=== PATIENT | male | born 1945 | race Caucasian/White ===

== ENCOUNTER → 2018-11-20 | Outpatient (CLI) | payer OTHER, MEDICARE ==
[~2018-11-20] VITALS: Ht 175.3 cm; Wt 97.5 kg
[~2018-11-20] MED LIST: AMLODIPINE BESYL5 MG PO; ASPIRIN EC325 M1 PO; BETIMOL5 ML OPHTHALMIC; CARVEDILOL25 MG PO; FISH OIL 1,2001 EAC4 PO; IBUPROFEN 200200 M1 PO; JARDIANCE25 MG PO; LANTUSSOLASTAR SQ; LISINOPRIL-HCT1 EAC1 PO; MOBIC7.5 MG PO; MULTIVITAMINS PO; NOVOLOG100 UNIT/1 SQ; SIMVASTATIN40 MG PO; TIMOLOL MA0.25 %/52 OPHTHALMIC; TRULICITY1.5 MG/0.5 SUBQ; XALATAN2.5 ML OPHTHALMIC
[2018-11-20 07:32] VITALS: BP 148/53
--- NOTE | 2018-11-20 14:15 | CATHLAB ---
[facility] [employer] [address] INVASIVE PROCEDURE REPORT Name: HERBERTH BLACKWELL Room #: REG [facility]#: [id number] ������������� Admission: 11/20/18 ������������� Attend Phys: Remy Jones, Discharge: ��� ������������� ��� Date of : 43 Date of Service: 11/20/18 1414 �� Report #: [id number] �������� ��������������������������������������������[id number] THIS REPORT FOR: //name// APPROVED REPORT Study performed: 11/20/2018 08:09:01 Patient Details The patient is a 73 year-old male Event Personnel Remy Jones Gym Attendant, Stuart Guzman Radiologist, Johnny Porter RN, Chris Hazel RTR Scrub Procedures Performed Left Heart Cath w/or w/o Coronaries [id number] [facility] Indication Chest pain Procedure Narrative The Right Groin^ was infiltrated with 1% Lidocaine subcutaneous anesthesia. A PINNACLE 6FR Sheath #[id number] sheath was inserted into the RFA^. Coronary angiography was performed using coronary diagnostic catheters. The right coronary system was accessed and visualized with a JR4 catheter. The left coronary system was accessed and visualized with a JL4 catheter. The left ventricle was accessed and visualized with a Straight Pigtail catheter. Left ventricular/Aortic Valve gradient assessed via catheter pullback. Left ventriculogram was performed in VALLE projection. Closure device was deployed with a Fr 6F Fish closure. The patient tolerated the procedure well and there were no complications associated with the procedure. There was no hematoma. Intraoperative Conscious Sedation Sedation start time: 818 Case end Time: 838 Fentanyl 50 mcg Versed 1 mg Fluoro Time: 7.79 minutes Dose: DAP 51666.00 cGycm2 519 mGy Contrast Type and Amount: Visipaque 95 ml Diagnostic Cath Left Main Mild plaquing [facility] [address] [place] [address] INVASIVE PROCEDURE REPORT Name: HERBERTH BLACKWELL Vel Room #: [facility]#: [id number] ������������� Admission: 11/20/18 ������������� Attend Phys: Remy Jones, Discharge: ��� ������������� ��� Date of : 43 Date of Service: 11/20/18 1414 �� Report #: [id number] �������� ��������������������������������������������[id number] LAD Occluded at its origin. Widely patent left internal mammary to the LAD with good runoff into the LAD system. Mild 30% tubular stenosis just beyond the distal anastomotic site. Diagonal 1 Diffusely diseased bifurcating first diagonal branch filled on interrogation of the mammary. Circumflex Occluded at its origin L PDA Patent free NASREEN from VO to PDA of dominant circumflex. Diffuse, severe disease throughout PDA, small calibre Right Coronary Occluded at its origin Left Ventriculography The left ventricle is normal in size with normal contractility. The left ventricular ejection fraction is estimated to be 60-65%. Left ventricular wall motion abnormalities are not present. There is no mitral insufficiency. Hemodynamics The aortic pressure is 140/54 mmHg with a mean of 92 mmHg. The left ventricular pressure is 140/12 mmHg with a mean of mmHg. The left ventricular end diastolic pressure is 24 mmHg. Conclusion 1. 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 Patent VO to LAD 3. Patent free NASREEN from LAD to severe, diffusely diseased PDA 4. Normal LV function. EF 65% Recommendations Aggressive Medical Therapy ��������������������������������������������� <ELECTRONICALLY SIGNED> ���������������������������������������� By: Remy Jones MD, [facility] ��������������������������������������������� 11/20/18 1414 13 141 Remy Jones MD, FACC /INF
--- NOTE | 2018-11-20 16:48 | EKG ---
[place] [address] [employer] [facility] [place] [address] ELECTROCARDIOGRAM REPORT Name: HERBERTH BLACKWELL Room #: REG CLI [facility]#: [id number] ������������������ Admission: 11/20/18 ������������������ Attend Phys: Remy Jones MD, Discharge: ������������������ Date of : 43 Report #: [id number] ����������������������������������������������������������������� [id number] THIS REPORT FOR: //name// [facility] Test Date: 2018-11-20 Test Time: 07:49:59 Pat Name: HERBERTH BLACKWELL Department: Room: Gender: M Senior Database Engineer: MELANIE : 1945 Requested By: Remy Jones Order Number: [id number] MD: Remy Jones Measurements Intervals [place] Rate: 76 P: 85 CA: 252 QRS: 29 QRSD: 105 T: 120 QT: 382 QTc: 430 Interpretive Statements Sinus rhythm Prolonged CA interval Repol abnrm suggests ischemia, lateral leads Compared to ECG 05/02/2001 07:02:[address] segment elevation no longer present Electronically Signed On 11-20-2018 16:47:49 CDT by Remy Jones [email or web address] ��������������������������������������������� <ELECTRONICALLY SIGNED> ���������������������������������������� By: Remy Jones MD, [facility] ��������������������������������������������� 11/20/18 2281 0749 0749 Remy Jones MD, [facility] /EPI
--- NOTE | 2018-12-03 12:31 | HC ---
[facility] [place] [address] CONSULTATION Name: HERBERTH BLACKWELL Room #: REG [facility] [id number] Admission: 11/20/18 ������������������ Attend Phys: Remy Jones MD, Discharge: ������������������ Date of : 43 Report #: [id number] THIS REPORT FOR: //name// CC: Mark Guzman DATE OF SERVICE: 11/20/2018 We were asked to see the patient by Dr. Guzman. HISTORY OF PRESENT ILLNESS: The patient is a 73-year-old with carotid artery disease. The patient had carotid arteriography on this date and it showed severe stenosis in the left internal carotid that is reported as 99%. The patient denies symptoms such as stroke or transient ischemic attack. PAST MEDICAL HISTORY: The patient has a past history of coronary artery disease, diabetes mellitus, hypertension, elevated cholesterol. He is status post coronary artery bypass in the past and coronary arteriogram shows that he is graft dependent. SOCIAL HISTORY: Reveals that he is . Never been a smoker. FAMILY HISTORY: Father at age 100. Mother at age 77 with cancer. ALLERGIES: None known. HOME MEDICATIONS: Amlodipine, aspirin, Coreg. Trulicity, Jardiance, insulin, lisinopril hydrochlorothiazide, vitamins, omega 3 fatty acid, simvastatin, timolol eyedrops and Xalatan eyedrops. REVIEW OF SYSTEMS: GENERAL: The patient denies fever, chills, weight change. CARDIAC: No chest pain, no palpitations. VASCULAR: No claudication. No ulceration or nonhealing lesions. EXTREMITIES: No edema. No musculoskeletal problems. RESPIRATORY: No shortness of breath. No cough. GASTROINTESTINAL: No nausea, vomiting, blood. GENITOURINARY: No urgency, frequency, blood. SKIN: No rash or infection. NEUROLOGIC: No motor or sensory dysfunction. No syncope. PHYSICAL EXAMINATION: VITAL SIGNS: Blood pressure 148/53, heart rate 79, respiratory rate 10, temperature 98.7, O2 sat 96. HEENT: Normocephalic. Pupils are round, equal. No icterus. [facility] [address] [place] [address] CONSULTATION Name: KALRUFUSCOREYHERBERTH J Room #: REG [facility]#: [id number] Admission: 11/20/18 ������������������ Attend Phys: Remy Jones MD, Discharge: ������������������ Date of : 43 Report #: [id number] NECK: No mass. Faint left carotid bruit, high pitched. CHEST: Clear. HEART: Rhythm regular. ABDOMEN: Soft, no mass. EXTREMITIES: No clubbing, cyanosis or edema. MUSCULOSKELETAL: No asymmetry or deformity. SKIN: No rash or infection. NEUROLOGIC: The patient is lying in bed after his catheterization, but no obvious motor or sensory dysfunction. ASSESSMENT: The patient has high-grade but asymptomatic left carotid artery stenosis. Risks and details of carotid endarterectomy were discussed. Options and alternatives (including TCAR) were reviewed. I have advised the patient that I am able to make room on the scheduled this week for urgent surgery. The patient ultimately after discussion with his , insists on going home. We will contact the patient and make every arrangements we can to expeditiously treat him. Thank you for the consult. ��������������������������������������������� <ELECTRONICALLY SIGNED> ���������������������������������������� By: Aaron Robertson MD ��������������������������������������������� 12/03/18 1231 0907 0944 Aaron Robertson MD /nt
== END | disposition home or self-care (01) ==
LOC: CATH 07:10
DX: I25.10 Atherosclerotic heart disease of native coronary artery without angina pectoris (principal); I65.23 Occlusion and stenosis of bilateral carotid arteries; I70.1 Atherosclerosis of renal artery; I10 Essential (primary) hypertension; E11.51 Type 2 diabetes mellitus with diabetic peripheral angiopathy without gangrene; G47.33 Obstructive sleep apnea (adult) (pediatric); E78.00 Pure hypercholesterolemia, unspecified; Z79.4 Long term (current) use of insulin; Z95.1 Presence of aortocoronary bypass graft; Z79.82 Long term (current) use of aspirin; Z79.899 Other long term (current) drug therapy